=== PATIENT | female | born 1990 | race Caucasian/White ===

== ENCOUNTER 2019-01-16 08:10 | Inpatient (IN) ==
--- OUTSIDE RECORDS SUMMARY | 2019-01-16 09:05 | External Medical Summary | Continuity of Care Document ---
:1990 Author Name Mariah Baker Address Unavailable Unavailable , Care Team Providers Name Role Phone Pamela Israel M.D. Unavailable [email or web address] [place] PCP, NO Unavailable Unavailable Unavailable Unavailable Unavailable Problems Hematuria (599.70) (R31.9) Allergic rhinitis (477.9) (J30.9) Allergies and Adverse Reactions No Known Drug Allergies (Allergy) Medications Fexofenadine HCl - 60 MG Oral Tablet; Take 1 tablet tw ice daily Olivia Israel Start: 24-Sep-2009 Quantity: 60 Refills: 2 Procedures History of Ear Pressure Equalization Tube, Insertion Status: Completed Immunizations Polio On: 1990 0:00 HIB On: 1990 0:00 DTP On: 1990 0:00 Polio On: 1990 0:00 HIB On: 1990 0:00 DTP On: 1990 0:00 HIB On: 01-Jan-1991 0:00 DTP On: 01-Jan-1991 0:00 Polio On: 05-Nov-1991 0:00 HIB On: 05-Nov-1991 0:00 DTP On: 05-Nov-1991 0:00 MMR On: 05-Nov-1991 0:00 Hepatitis B On: 03-May-1994 0:00 Hepatitis B On: 28-Jun-1994 0:00 Hepatitis B On: 06-Nov-1994 0:00 Polio On: 07-Aug-1995 0:00 DTP On: 07-Aug-1995 0:00 MMR On: 27-Jun-1996 0:00 Varicella On: 26-Dec-2000 0:00 Tetanus-Diphtheria Toxoids Td 2-2 LF/0.5ML Intramuscul ar Suspension On: 26-Dec-2001 0:00 Influenza On: 17-Mar-2003 0:00 Menactra Intramuscular Injectable On: 05-Jul-2006 0:00 HPV (Gardasil) On: 05-Jul-2006 0:00 HPV (Gardasil) On: 17-Oct-2006 0:00 HPV (Gardasil) On: 01-Feb-2007 0:00 Varicella On: 27-May-2007 0:00 Tdap (Adacel) On: 15-May-2008 0:00 PPD On: 17-Nov-2011 0:00 Influenza On: 01-Dec-2011 0:00 Family History Sister Family history of Renal Failure Status: Active Unknown Family Member Family history of Breast Cancer (V16.3) Status: Active Comments: Family History Family history of Prostate Cancer (V16.42) Status: Active Comments: Family History aunt Family history of Diabetes Mellitus (V18.0) Status: Active Social History - Smoking Status Unknown if ever smoked Plan of Treatment Planned Observations Planned Goals not documented Results No Known Results Results not documented
[2019-01-16] MEDS ORDERED: OXYTOCIN 30 UNITS/500 ML BAG IV PRN (09:09)
[2019-01-16] MEDS ORDERED: DINOPROSTONE 10 MG INSERT PV ONE (09:09)
[2019-01-16] MEDS ORDERED: PATIENT'S ALLERGY INFO NEEDS ENTERED SCH (09:30)
[2019-01-16 09:43] LABS: Hematocrit (blood only) 33.9 % (37-47); Hemoglobin 11.5 g/dL (12.0-16.0); Mean Corpuscular Hemoglobin 27.8 pg (25-34); Mean Corpuscular Volume 82.1 fL (80-100); Mean Platelet Volume 9.6 fL (7.4-10.4); Platelet Count 314 K/uL (130-400); RDW Coefficient of Variation 13.5 % (11.5-14.5); RDW Standard Deviation 40.9 fL (36.4-46.3); Red Blood Count 4.13 M/uL (4.2-5.4); White Blood Count 13.65 K/uL (4.8-10.8)
[2019-01-16 09:58] LABS: Mean Corpuscular Hgb Conc 33.9 g/dL (32-36)
--- NOTE | 2019-01-16 10:26 | History & Physical Report ---
Date of Service January 16, 2019 Assessment & Plan (1) Elective induction of labor planned: 28 yo at 39.4 wks , IOL t term for Class III obesity VSS Afebrile no medical problems Suspected macrosomia FHR reassuring Understands limitation of US and risks of shoulder dystocia and desires to try for See HPI (2) Macrosomia affecting management of mother in third trimester: History of Present Illness Chief Complaint: Induction Primary Care Provider: NO PCP Patient is a 28 yo at 39.4 wks w ho si here for scheduled IOL at term for o besity No complaints No ctxs/ LOF/VB +FM's Her has been uncomplicated except 1) Class III Obesity 2) Rh negative 3) Elevated Glucola 138, passes 3 hout OGTT 4) Suspected macrosomia EFW was 3825 on 01/06, over 90th %ile Todays bed side US showed 4280 gr, BPD, AC are above 41 wks Both parents have large built body habitus Discussed risks of macrosomia, shoulder dystocia in details Discussed limitation of US, 10-15% rate of more or less with EFW Discussed neck/ nerve injury. 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[employer] LOCAL History No h/o STD's, no chlamydia/ gonorrhea/ genital herpes Review of Systems All systems reviewed & are unremarkable except as noted in HPI & below Physical Exam Constitutional: WD/WN, vitals as above well developed and well nourished Comfortably talking Gastrointestinal (Abdomen): abd: soft, NT, gravid Bed side US: vertex, placenta anterior, EFW 4280 gr Genitourinary: VE: cervix is very high, posterior,soft, 1/ 30%/ -4 Results & Data Vital Signs (Past 12 Hours) Vital Signs Temp Pulse Resp BP 01/16/19 09:10 36.5 C 20 01/16/19 09:06 97 H 129/83 Monitoring External Monitor Reactive Tocodynamometer No ctxs
[2019-01-16] MEDS ORDERED: BUTORPHANOL TARTRATE 1 MG/ML VIAL IV PRN (22:30)
--- NOTE | 2019-01-16 22:33 | Obstetrical Progress Note ---
Date of Service January 16, 2019 Subjective Patient is reevalauated She has been feeling ctxs, every 1-2 min Pain is 6-7/10 Does not need pain meds for now No LOF/VB +FM VSS Afebrile FHR categ I [place]: ctxs q 1-3 min VE: cervidil is removed, cervix 1-2 cm/ 30% but softer, -3, ballotable head Abundant curdy d/c, suggesting jose Plan to monitor, let her shower/ eat and continue with cervical ripenin with PO Cytotec when ctxs will space out Understands all Results & Data Vital Signs (Past 12 Hours) Vital Signs Temp Pulse Resp BP 01/16/19 19:48 76 127/74 01/16/19 16:54 20 01/16/19 15:15 90 134/86 01/16/19 15:13 36.6 C 18 01/16/19 12:18 36.6 C 88 20 124/72
[2019-01-16] MEDS ORDERED: FLUCONAZOLE 50 MG TAB PO ONE (23:00)
[2019-01-17] MEDS: LACTATED RINGER'S 1,000 ML IV PRN ×5 (06:35→22:25)
[2019-01-17] MEDS ORDERED: fentaNYL 2MCG/ML ROPIV 1.25MG/ML 100 ML BAG EPI ONE (08:36)
[2019-01-17] MEDS ORDERED: ePHEDrine sulfate 50 MG/ML AMP ONE (08:38)
[2019-01-17] MEDS ORDERED: fentaNYL citrate 100 MCG/2 ML VIAL ONE (08:38)
[2019-01-17] MEDS ORDERED: BUPIVACAINE 0.25% 30 ML VIAL ONE (08:39)
[2019-01-17] MEDS ORDERED: NALOXONE HCL 1 MG in SODIUM CHLORIDE 0.9% 1000ML 1,000 ML IV PRN (09:25)
[2019-01-17] MEDS ORDERED: NALOXONE HCL 0.4 MG/1 ML VIAL/CARP IV PRN (09:25)
[2019-01-17] MEDS ORDERED: DiphenhydrAMINE HCL 50 MG/ML VIAL IV PRN (09:25)
[2019-01-17] MEDS ORDERED: ePHEDrine sulfate 50 MG/ML AMP IV PRN (09:25)
[2019-01-17] MEDS ORDERED: NALBUPHINE HCL INJ 10 MG/ML AMP IV PRN (09:25)
--- NOTE | 2019-01-17 09:27 | Anesthesiology Consultation ---
Date of Service January 17, 2019 Assessment & Plan (1) Encounter for pre-operative examination: Chart Review Chart Review: Patient NOT seen in Pre Admission Testing and Acceptable Risk for Labor Epidural Consults Requested none ASA ASA2 Proposed Anesthesia Anesthesia Type: Labor Epidural Risk / Benefits Reviewed With: PT / POA / Parent / Guardian, Accepts Plan and Informed Consent Obtained History Height/Weight Height: 5 ft 6 in Weight: 121.109 kg Allergies Allergy/AdvReac Type Severity Reaction Status Date / Time pollen extracts Allergy Congested Verified 01/16/19 11:56 Medications Home Medications Medication Instructions Recorded Confirmed Last Taken levocetirizine [Xyzal] 5 mg PO DAILY 01/16/19 01/16/19 01/16/19 06:30 vit no.[id number] 1 tab PO DAILY 01/16/19 01/16/19 01/16/19 06:30 [ Vitamin] Active Medications Generic Name Dose Route Start Last Admin Trade Name Freq PRN Reason Stop Dose Admin Butorphanol Tartrate 1 mg 01/16/19 22:30 01/17/19 06:38 Stadol IV 02/15/19 22:29 1 mg Q2HWA PRN Administration Pain Lactated Ringer's 1,000 mls @ 150 mls/hr 01/16/19 09:20 01/17/19 09:16 Lr IV 01/18/19 09:19 500 mls/hr .[id number] PRN Administration L&D Protocol Protocol NPO Date Last Intake of Fluids: 01/17/19 Time Last Intake of Fluids: 09:00 Date Last Intake of Solids: 01/16/19 Time Last Intake of Solids: 21:00 Past Medical History Medical History Vitamin D deficiency Exercise / Class Metabolic Activity II 4-5 Yardwork/Stairs/Walk up hill Past Anesthesia History No Hx of Anesthesia Complications and No Family Hx of Anesthesia Complications History of PONV No Hx of PONV and No Hx of Motion Sickness Social History Smoking Status: Never smoker Do You Dip or Chew Tobacco: No Hx Alcohol Use: No Hx Substance Use: No substance use type: does not use Physical Exam Vital Signs Last Vital Signs Temp 36.6 C 01/17/19 08:57 Pulse 95 H 01/17/19 09:24 Resp 20 01/17/19 08:29 BP 145/83 H 01/17/19 09:22 Pulse Ox 98 01/17/19 09:24 Constitutional + obese ENMT Mouth: no dentition abnormality Thyromental Distance: > or= 3.5 Finger Breadths Mallampati Class: II Neck normal visual inspection Respiratory normal respiratory effort Auscultation: lungs clear to auscultation bilaterally Cardiovascular Rate/Rhythm: regular rate and regular rhythm Psychiatric Orientation: alert Testing Laboratory Results 01/16/19 09:22 Blood Type A Negative 01/16/19 09:22 Antibody Screen NEGATIVE 01/16/19 09:22
[2019-01-17] MEDS ORDERED: OXYTOCIN 30 UNITS/500 ML BAG IV PRN (13:57)
--- NOTE | 2019-01-17 14:17 | Labor Progress Brief Note ---
Date of Service January 17, 2019 Pt doing well Epidural analgesia in place FHR: CAt1 Ctx 1-5min, Minimal intensity Pitocin discussed with pt. agrees to pit. trial VE 3-4/50/-3 Results & Data Vital Signs (Past 12 Hours) Vital Signs Temp Pulse Resp BP Pulse Ox 01/17/19 14:14 123 H 94 01/17/19 14:09 105 H 95 01/17/19 14:04 95 H 98 01/17/19 14:02 106 H 109/59 L 01/17/19 13:59 109 H 100 01/17/19 13:54 105 H 100 01/17/19 13:49 104 H 98 01/17/19 13:47 100 H 118/64 01/17/19 13:44 103 H 98 01/17/19 13:39 100 H 98 01/17/19 13:34 104 H 99 01/17/19 13:32 115 H 115/74 01/17/19 13:29 108 H 100 01/17/19 13:24 108 H 99 01/17/19 13:19 107 H 100 01/17/19 13:17 106 H 111/65 01/17/19 13:14 115 H 93 01/17/19 13:09 127 H 18 100 01/17/19 13:04 103 H 100 01/17/19 13:02 100 H 117/61 01/17/19 13:00 36.5 C 18 01/17/19 12:59 92 H 100 01/17/19 12:54 102 H 100 01/17/19 12:49 111 H 99 01/17/19 12:47 96 H 123/65 01/17/19 12:44 94 H 100 01/17/19 12:39 96 H 99 01/17/19 12:36 98 H 82 L 01/17/19 12:34 98 H 100 01/17/19 12:33 90 121/72 01/17/19 12:30 100 H 88 L 01/17/19 12:29 103 H 100 01/17/19 12:24 101 H 99 01/17/19 12:19 101 H 100 01/17/19 12:17 96 H 114/64 01/17/19 12:14 98 H 100 01/17/19 12:09 91 H 99 01/17/19 12:04 109 H 100 01/17/19 12:03 97 H 129/61 01/17/19 12:00 18 01/17/19 11:59 91 H 100 01/17/19 11:54 90 100 01/17/19 11:49 89 100 01/17/19 11:47 88 100/55 L 01/17/19 11:44 92 H 100 01/17/19 11:40 92 H 90 01/17/19 11:39 97 H 95 01/17/19 11:34 90 100 01/17/19 11:32 89 95/51 L 01/17/19 11:29 96 H 100 01/17/19 11:24 93 H 99 01/17/19 11:19 96 H 100 01/17/19 11:17 93 H 93/53 L 01/17/19 11:14 96 H 100 01/17/19 11:09 97 H 99 01/17/19 11:04 101 H 100 01/17/19 11:03 101 H 110/64 01/17/19 11:00 36.6 C 18 01/17/19 10:59 119 H 100 01/17/19 10:54 116 H 99 01/17/19 10:52 120 H 92 01/17/19 10:49 98 H 97 01/17/19 10:47 103 H 139/85 01/17/19 10:44 98 H 100 01/17/19 10:39 94 H 99 01/17/19 10:34 96 H 98 01/17/19 10:32 100 H 141/85 H 01/17/19 10:29 96 H 99 01/17/19 10:24 98 H 99 01/17/19 10:19 93 H 99 01/17/19 10:17 101 H 146/92 H 01/17/19 10:14 95 H 97 01/17/19 10:09 97 H 98 01/17/19 10:04 94 H 98 01/17/19 10:02 99 H 138/82 01/17/19 09:59 92 H 99 01/17/19 09:54 90 98 01/17/19 09:52 105 H 94 01/17/19 09:49 92 H 100 01/17/19 09:47 90 141/82 H 01/17/19 09:44 97 H 99 01/17/19 09:39 92 H 99 01/17/19 09:34 98 H 98 01/17/19 09:33 101 H 92 01/17/19 09:31 97 H 136/74 01/17/19 09:29 99 H 98 01/17/19 09:28 96 H 141/76 H 01/17/19 09:25 94 H 140/78 01/17/19 09:24 95 H 98 01/17/19 09:23 18 01/17/19 09:22 91 H 145/83 H 01/17/19 09:19 86 149/85 H 97 01/17/19 09:17 113 H 142/93 H 01/17/19 09:14 96 H 99 01/17/19 09:09 96 H 100 01/17/19 09:07 99 H 18 139/95 88 L 01/17/19 09:04 92 H 97 01/17/19 09:00 20 01/17/19 08:59 97 H 98 01/17/19 08:57 36.6 C 01/17/19 08:54 87 98 01/17/19 08:30 20 01/17/19 08:29 20 01/17/19 07:30 18 01/17/19 07:08 36.7 C 91 H 20 131/70 01/17/19 05:59 36.7 C 01/17/19 04:08 91 H 137/65 01/17/19 03:03 36.6 C 93 H 18 120/70
[2019-01-17] MEDS: fentaNYL 2MCG/ML ROPIV 1.25MG/ML 100 ML BAG EPI PRN ×2 (18:41→23:28)
--- NOTE | 2019-01-17 22:14 | Labor Progress Brief Note ---
Date of Service January 17, 2019 Pt doing well last exam by nurse; 8cm Pit 20 mu Results & Data Vital Signs (Past 12 Hours) Vital Signs Temp Pulse Resp BP Pulse Ox 01/17/19 22:09 108 H 98 01/17/19 22:08 111 H 83 L 01/17/19 22:04 98 H 99 01/17/19 22:02 94 H 127/60 01/17/19 21:59 100 H 100 01/17/19 21:54 101 H 98 01/17/19 21:49 98 H 99 01/17/19 21:47 103 H 127/60 01/17/19 21:44 120 H 94 01/17/19 21:39 105 H 97 01/17/19 21:34 105 H 99 01/17/19 21:33 106 H 132/63 01/17/19 21:29 107 H 99 01/17/19 21:24 108 H 100 01/17/19 21:19 103 H 100 01/17/19 21:17 97 H 129/68 01/17/19 21:14 106 H 100 01/17/19 21:09 106 H 100 01/17/19 21:04 106 H 100 01/17/19 21:03 108 H 127/67 01/17/19 21:00 36.9 C 01/17/19 20:59 107 H 100 01/17/19 20:54 119 H 100 01/17/19 20:49 111 H 100 01/17/19 20:47 113 H 130/70 01/17/19 20:44 126 H 100 01/17/19 20:39 112 H 100 01/17/19 20:34 101 H 100 01/17/19 20:32 102 H 131/68 01/17/19 20:29 99 H 100 01/17/19 20:24 99 H 99 01/17/19 20:19 107 H 100 01/17/19 20:17 100 H 131/67 01/17/19 20:14 105 H 97 01/17/19 20:09 93 H 100 01/17/19 20:04 95 H 100 01/17/19 20:02 96 H 117/65 01/17/19 19:59 104 H 97 01/17/19 19:54 91 H 97 01/17/19 19:49 89 98 01/17/19 19:47 95 H 116/72 01/17/19 19:44 92 H 98 01/17/19 19:39 96 H 99 01/17/19 19:34 96 H 95 01/17/19 19:32 95 H 122/60 01/17/19 19:29 95 H 95 01/17/19 19:24 94 H 98 01/17/19 19:19 92 H 98 01/17/19 19:17 93 H 122/60 01/17/19 19:14 102 H 98 01/17/19 19:09 105 H 92 01/17/19 19:04 98 H 97 01/17/19 19:02 36.8 C 96 H 20 124/60 01/17/19 18:59 104 H 96 01/17/19 18:54 98 H 98 01/17/19 18:49 103 H 99 01/17/19 18:48 96 H 119/57 L 01/17/19 18:44 99 H 100 01/17/19 18:39 102 H 99 01/17/19 18:34 120 H 83 L 01/17/19 18:32 101 H 123/63 01/17/19 18:29 96 H 100 01/17/19 18:28 36.8 C 106 H 20 83 L 01/17/19 18:24 99 H 100 01/17/19 18:19 91 H 100 01/17/19 18:18 94 H 121/67 01/17/19 18:14 96 H 99 01/17/19 18:09 95 H 100 01/17/19 18:04 91 H 99 01/17/19 18:02 92 H 115/58 L 01/17/19 17:59 94 H 93 01/17/19 17:54 97 H 100 01/17/19 17:49 101 H 100 01/17/19 17:47 98 H 124/69 01/17/19 17:44 97 H 100 01/17/19 17:39 96 H 99 01/17/19 17:34 97 H 99 01/17/19 17:32 96 H 128/64 01/17/19 17:29 101 H 100 01/17/19 17:24 96 H 99 01/17/19 17:19 88 98 01/17/19 17:17 91 H 100/69 01/17/19 17:14 95 H 100 01/17/19 17:09 104 H 99 01/17/19 17:04 102 H 95 01/17/19 17:02 99 H 117/69 01/17/19 16:59 100 H 99 01/17/19 16:54 102 H 100 01/17/19 16:52 36.7 C 18 01/17/19 16:49 101 H 99 01/17/19 16:47 96 H 126/73 01/17/19 16:44 106 H 97 01/17/19 16:39 98 H 98 01/17/19 16:34 96 H 97 01/17/19 16:32 96 H 121/63 01/17/19 16:29 99 H 98 01/17/19 16:24 105 H 97 01/17/19 16:19 105 H 98 01/17/19 16:17 98 H 125/62 01/17/19 16:14 94 H 96 01/17/19 16:09 102 H 97 01/17/19 16:04 99 H 96 01/17/19 16:02 94 H 122/64 01/17/19 15:59 100 H 98 01/17/19 15:54 100 H 97 01/17/19 15:49 103 H 97 01/17/19 15:47 100 H 130/71 01/17/19 15:46 36.6 C 18 01/17/19 15:44 100 H 98 01/17/19 15:39 103 H 98 01/17/19 15:34 103 H 96 01/17/19 15:32 96 H 112/56 L 01/17/19 15:29 96 H 96 01/17/19 15:24 97 H 98 01/17/19 15:19 105 H 98 01/17/19 15:17 94 H 122/71 01/17/19 15:14 101 H 97 01/17/19 15:09 95 H 98 01/17/19 15:04 105 H 98 01/17/19 15:02 95 H 125/76 01/17/19 14:59 96 H 97 01/17/19 14:54 93 H 98 01/17/19 14:49 95 H 97 01/17/19 14:47 96 H 129/80 01/17/19 14:44 94 H 99 01/17/19 14:39 96 H 99 01/17/19 14:34 97 H 99 01/17/19 14:32 96 H 118/71 01/17/19 14:29 102 H 98 01/17/19 14:24 99 H 99 01/17/19 14:22 36.5 C 18 01/17/19 14:19 101 H 99 01/17/19 14:17 110 H 112/69 01/17/19 14:14 123 H 94 01/17/19 14:09 105 H 95 01/17/19 14:04 95 H 98 01/17/19 14:02 106 H 109/59 L 01/17/19 13:59 109 H 100 01/17/19 13:54 105 H 100 01/17/19 13:49 104 H 98 01/17/19 13:47 100 H 118/64 01/17/19 13:44 103 H 98 01/17/19 13:39 100 H 98 01/17/19 13:34 104 H 99 01/17/19 13:32 115 H 115/74 01/17/19 13:29 108 H 100 01/17/19 13:24 108 H 99 01/17/19 13:19 107 H 100 01/17/19 13:17 106 H 111/65 01/17/19 13:14 115 H 93 01/17/19 13:09 127 H 18 100 01/17/19 13:04 103 H 100 01/17/19 13:02 100 H 117/61 01/17/19 13:00 36.5 C 18 01/17/19 12:59 92 H 100 01/17/19 12:54 102 H 100 01/17/19 12:49 111 H 99 01/17/19 12:47 96 H 123/65 01/17/19 12:44 94 H 100 01/17/19 12:39 96 H 99 01/17/19 12:36 98 H 82 L 01/17/19 12:34 98 H 100 01/17/19 12:33 90 121/72 01/17/19 12:30 100 H 88 L 01/17/19 12:29 103 H 100 01/17/19 12:24 101 H 99 01/17/19 12:19 101 H 100 01/17/19 12:17 96 H 114/64 01/17/19 12:14 98 H 100 01/17/19 12:09 91 H 99 01/17/19 12:04 109 H 100 01/17/19 12:03 97 H 129/61 01/17/19 12:00 18 01/17/19 11:59 91 H 100 01/17/19 11:54 90 100 01/17/19 11:49 89 100 01/17/19 11:47 88 100/55 L 01/17/19 11:44 92 H 100 01/17/19 11:40 92 H 90 01/17/19 11:39 97 H 95 01/17/19 11:34 90 100 01/17/19 11:32 89 95/51 L 01/17/19 11:29 96 H 100 01/17/19 11:24 93 H 99 01/17/19 11:19 96 H 100 01/17/19 11:17 93 H 93/53 L 01/17/19 11:14 96 H 100 01/17/19 11:09 97 H 99 01/17/19 11:04 101 H 100 01/17/19 11:03 101 H 110/64 01/17/19 11:00 36.6 C 18 01/17/19 10:59 119 H 100 01/17/19 10:54 116 H 99 01/17/19 10:52 120 H 92 01/17/19 10:49 98 H 97 01/17/19 10:47 103 H 139/85 01/17/19 10:44 98 H 100 01/17/19 10:39 94 H 99 01/17/19 10:34 96 H 98 01/17/19 10:32 100 H 141/85 H 01/17/19 10:29 96 H 99 01/17/19 10:24 98 H 99 01/17/19 10:19 93 H 99 01/17/19 10:17 101 H 146/92 H 01/17/19 10:14 95 H 97
[2019-01-18] MEDS ORDERED: METHYLERGONOVINE MALEATE 0.2 MG/ML AMP ONE (01:01)
[2019-01-18] MEDS ORDERED: miSOPROStoL 200 MCG TAB ONE (01:03)
[2019-01-18] MEDS ORDERED: OXYCODONE/ACETAMINOPHEN 5mg/325mg TAB PO PRN (02:20)
[2019-01-18] MEDS ORDERED: BENZOCAINE 20% AER SPR 82.5 GM CAN EXT PRN (02:20)
[2019-01-18] MEDS ORDERED: METHYLERGONOVINE MALEATE 0.2 MG/ML AMP IM ONE (02:20)
[2019-01-18] MEDS ORDERED: HYDROCORTISONE ACETATE 25 MG SUPP PR PRN (02:20)
[2019-01-18] MEDS ORDERED: SUPERCREAM 0.870% 15 GM JAR EXT PRN (02:20)
[2019-01-18] MEDS ORDERED: DIPHTHERIA/TETANUS/PERTUSSIS 0.5 ML SYR/VIAL IM ONE (02:20)
[2019-01-18] MEDS ORDERED: OXYTOCIN 30 UNITS/500 ML BAG IV PRN (02:20)
[2019-01-18] MEDS ORDERED: ACETAMINOPHEN 325 MG TAB PO PRN (02:20)
[2019-01-18] MEDS ORDERED: bisacodyL 10 MG SUPP PR PRN (02:20)
[2019-01-18] MEDS ORDERED: ACETAMINOPHEN W/CODEINE #3 1 TAB PO PRN (02:20)
[2019-01-18] MEDS ORDERED: miSOPROStoL 200 MCG TAB PR ONE (02:20)
[2019-01-18] MEDS: IBUPROFEN 600 MG TAB PO PRN ×4 (02:48→21:46)
[2019-01-18] MEDS: miSOPROStoL 50 MCG TAB PO SCH ×4 (03:51→17:59)
--- NOTE | 2019-01-18 08:24 | Anesthesia Procedure Note ---
Date of Service January 18, 2019 Anesthesia Post Epidural Note Vital Signs Vital Signs: Temp Pulse Resp BP Pulse Ox 36.6 C 96 H 18 100/67 96 01/18/19 03:45 01/18/19 03:45 01/18/19 03:45 01/18/19 03:45 01/18/19 00:51 Pain Intensity Bilateral Episiotomy/Laceration: Pain Intensity: 3 Notes Mental Status: alert / awake / arousable and participated in evaluation Nausea / Vomiting: adequately controlled Pain: adequately controlled Airway Patency, RR, SpO2: stable & adequate BP & HR: stable & adequate Hydration State: stable & adequate Neuraxial Anesthesia: was administered and sensory block is resolving Anesthetic Complications: no major complications apparent Epidural: Removed without complications and With tip intact
[2019-01-18] MEDS: DOCUSATE SODIUM 100 MG CAP PO SCH ×2 (08:41→21:46)
[2019-01-18] MEDS: PRENATAL VITAMIN 1 TAB PO SCH (08:41)
[2019-01-18] MEDS: FERROUS SULFATE 325 MG TAB PO SCH (08:42)
[2019-01-19 06:20] LABS: Hematocrit (blood only) 26.8 % (37-47); Hemoglobin 8.6 g/dL (12.0-16.0); Mean Corpuscular Hemoglobin 26.9 pg (25-34); Mean Corpuscular Hgb Conc 32.1 g/dL (32-36); Mean Corpuscular Volume 83.8 fL (80-100); Mean Platelet Volume 9.7 fL (7.4-10.4); Platelet Count 285 K/uL (130-400); RDW Coefficient of Variation 13.8 % (11.5-14.5); RDW Standard Deviation 42.1 fL (36.4-46.3); White Blood Count 14.27 K/uL (4.8-10.8)
[2019-01-19] MEDS: IBUPROFEN 600 MG TAB PO PRN (06:39)
[2019-01-19] MEDS: DOCUSATE SODIUM 100 MG CAP PO SCH (08:30)
[2019-01-19] MEDS: FERROUS SULFATE 325 MG TAB PO SCH (08:30)
[2019-01-19] MEDS: PRENATAL VITAMIN 1 TAB PO SCH (08:31)
--- NOTE | 2019-01-19 10:26 | Obstetrical Progress Note ---
Date of Service January 19, 2019 Subjective Patient is seen and examined. She feels well, no complaints. Likes to be discharged Ambulating without dizziness Voiding without difficulty Tolerating regular diet with out N&V Bleeding is minimal No fever/ chills/ CP/ SOB/ N&V/ Leg pain Breast feeding without problems Vital Signs Temp Pulse Resp BP Pulse Ox 01/19/19 07:40 36.5 C 85 18 113/74 98 01/18/19 23:10 36.6 C 99 H 18 99/66 L Vital Signs Temp Pulse Pulse Resp BP BP Pulse Ox 01/19/19 07:40 36.5 C 85 18 113/74 98 01/18/19 23:10 36.6 C 99 H 18 99/66 L 01/18/19 19:40 36.4 C L 80 18 124/79 01/18/19 16:32 36.6 C 92 H 16 137/91 99 01/18/19 15:30 36.6 C 94 H 20 105/71 94 01/18/19 12:24 36.6 C 103 H 18 134/90 97 Intake and Output 01/18/19 01/19/19 01/19/19 22:59 06:59 14:59 Intake Total / Balance Intake: Intake (Blood Product) Amt / Rho D Immune Globulin Unit [id number] Lab Results 01/16/19 01/16/19 01/18/19 Range/Units 09:22 09:22 15:00 WBC 13.65 H (4.8-10.8) K/uL RBC 4.13 L (4.2-5.4) M/uL Hgb 11.5 L (12.0-16.0) g/dL Hct 33.9 L (37-47) % MCV 82.1 (80-100) fL MCH 27.8 (25-34) pg MCHC 33.9 (32-36) g/dL RDW Std Deviation 40.9 (36.4-46.3) fL RDW Coeff of Barrie 13.5 (11.5-14.5) % Plt Count 314 (130-400) K/uL MPV 9.6 (7.4-10.4) fL Blood Type A Negative A Negative Antibody Screen NEGATIVE Cancelled Screen Negative (Negative) 01/19/19 Range/Units 05:59 WBC 14.27 H (4.8-10.8) K/uL RBC 3.20 L (4.2-5.4) M/uL Hgb 8.6 L (12.0-16.0) g/dL Hct 26.8 L (37-47) % MCV 83.8 (80-100) fL MCH 26.9 (25-34) pg MCHC 32.1 (32-36) g/dL RDW Std Deviation 42.1 (36.4-46.3) fL RDW Coeff of Barrie 13.8 (11.5-14.5) % Plt Count 285 (130-400) K/uL MPV 9.7 (7.4-10.4) fL Blood Type Antibody Screen Screen (Negative) PE: General: Alert, orientedx3, NAD Abd: soft, NT, fundus firm, below Umbilicus Perineum intact, Lochia rubra minimal Ext; NT, no edema AP: 28 yo s/p , ppd# 1 VSS Afebrile doing well Continue routine care Discussed when to call All questions were answered D/C home , f/u in office Results & Data Vital Signs (Past 12 Hours) Vital Signs Temp Pulse Resp BP Pulse Ox 01/19/19 07:40 36.5 C 85 18 113/74 98 01/18/19 23:10 36.6 C 99 H 18 99/66 L
[2019-01-19] MEDS ORDERED: bisacodyL 5 MG TABEC PO SCH (20:00)
--- NOTE | 2019-01-20 07:46 | Delivery Summary ---
DATE OF OPERATION: 01/18/2019 The patient delivered a live infant male in the left occiput anterior presentation. There was nuchal cord which was easily reduced. Infant was delivered. Cord was clamped and cut. The patient wanted cord blood collection, so that was performed. Placenta spontaneously delivered. Inspection of the placenta shows a 3-vessel cord. Placenta otherwise appeared grossly normal. Inspection of the perineum shows a second-degree midline laceration which was repaired in layers with 2-0 and 3-0 Vicryl. Rectal exam post repair showed good sphincter tone, no sutures are palpated in the rectum. Estimated blood loss is 500 mL. Infant's weight and Apgars is in the pediatric record. Baby and mother are doing well in recovery. All instruments were removed from the vagina including sponges, needles, and retractors. I attest to the content of the Intraoperative Record and any orders documented therein. Any exception s are noted below.
== END 2019-01-19 13:20 | disposition home or self-care (01) | DRG 807 ==
LOC: 4S1 09:02 → 4S2 01-18 04:17

== ENCOUNTER 2020-10-04 08:26 | Inpatient (IN) ==
[2020-10-04] MEDS ORDERED: OXYTOCIN 30 UNITS/500 ML BAG IV PRN (09:36)
[2020-10-04 10:19] LABS: Hematocrit (blood only) 34.4 % (37-47); Hemoglobin 10.9 g/dL (12.0-16.0); Mean Corpuscular Hgb Conc 31.7 g/dL (32-36); Mean Corpuscular Volume 82.1 fL (80-100); Mean Platelet Volume 9.9 fL (7.4-10.4); Platelet Count 376 K/uL (130-400); RDW Coefficient of Variation 14.1 % (11.5-14.5); RDW Standard Deviation 42.2 fL (36.4-46.3); Red Blood Count 4.19 M/uL (4.2-5.4); White Blood Count 13.82 K/uL (4.8-10.8)
--- NOTE | 2020-10-04 12:07 | Ultrasound Report ---
US OB limited HISTORY: 30 years-old Female hx of macrosmia follow-up study in a patient with decreased weigh t COMPARISON: None TECHNIQUE: Multiple real-time sonographic images of the pelvic structures were obtained transabdomina lly assessing grayscale appearance, color and spectral flow with M-mode analysis FINDINGS: There is a single living intrauterine gestation in cephalic positioning, heart rate measured at 146 bpm. BPD measures 9.9 cm correlating with estimated gestational age of 40 weeks and 4 days. Head circumference is 35.4 cm correlating with estimated gestational age of 41 weeks 3 days. Abdominal ci rcumference measures 35 cm, 39 weeks and 2 days. Femur length is 7.9 cm, 40 weeks and 2 days. Estimat ed weight is 3913 g +/- 587 g. Questioned nuchal cord. IMPRESSION: 1. Single living intrauterine gestation in cephalic positioning with measurements as above. 2. Nuchal cord. ACT 112: Negative or not required by law. The above report was generated using voice recognition software. It may contain grammatical, syntax o r spelling errors. Electronically signed by: Edis Mcginnis M.D. 10/04/2020 12:06 PM
--- NOTE | 2020-10-04 12:40 | Progress Note ---
Date of Service October 04, 2020 Assessment & Plan Admission and Anticipated Discharge Date Admission Date: October 04, 2020 Subjective Met pt and spouse Reviewed Induction Pt delivered 9.1Lb baby last time This time she was offered induction at 39 weeks and declined EFW today is ordered and reviewed will proceed with induction Results & Data ([facility]) Vital Signs (Past 12 Hours) Vital Signs Temp Pulse Resp BP 10/04/20 11:18 36.5 C 81 18 103/66 10/04/20 08:49 36.7 C 87 18 136/85 10/04/20 08:45 36.5 C 20
[2020-10-04] MEDS: miSOPROStoL 50 MCG TAB PO SCH ×2 (13:51→19:26)
--- NOTE | 2020-10-04 14:19 | Progress Note ---
Date of Service October 04, 2020 Assessment & Plan Admission and Anticipated Discharge Date Admission Date: October 04, 2020 Subjective FHR CAT1 Ctx; Minimal VE /post Cytotec # ordered Results & Data ([facility]) Vital Signs (Past 12 Hours) Vital Signs Temp Pulse Resp BP 10/04/20 11:18 36.5 C 81 18 103/66 10/04/20 08:49 36.7 C 87 18 136/85 10/04/20 08:45 36.5 C 20
[2020-10-04] MEDS ORDERED: PENICILLIN G POTASSIUM 6 MU in DEXTROSE 5% 250 ML IV STA (16:22)
[2020-10-04] MEDS ORDERED: DINOPROSTONE 10 MG INSERT PV ONE (23:42)
--- NOTE | 2020-10-05 00:11 | Progress Note ---
Date of Service October 05, 2020 Assessment & Plan Admission and Anticipated Discharge Date Admission Date: October 04, 2020 Subjective Doing well FHR; CAT! Ctx; 2-5min, mild intensity VE 04/24/ Cervidil placed in vagina Results & Data ([facility]) Vital Signs (Past 12 Hours) Vital Signs Temp Pulse Resp BP 10/04/20 19:01 36.8 C 84 18 126/86 10/04/20 14:56 36.4 C L 82 20 123/81
[2020-10-05] MEDS: BUTORPHANOL TARTRATE 1 MG/ML VIAL IV PRN ×2 (03:25→06:25)
[2020-10-05] MEDS: LACTATED RINGER'S 1,000 ML IV PRN ×3 (07:44→14:45)
[2020-10-05] MEDS ORDERED: ePHEDrine sulfate 50 MG/ML AMP ONE (07:53)
[2020-10-05] MEDS ORDERED: BUPIVACAINE 0.25% 30 ML VIAL ONE (07:53)
[2020-10-05] MEDS ORDERED: SODIUM CHLORIDE 0.9% INJ 10 ML VIAL ONE (07:53)
[2020-10-05] MEDS ORDERED: fentaNYL citrate 100 MCG/2 ML VIAL ONE (07:54)
[2020-10-05] MEDS ORDERED: fentaNYL 2MCG/ML ROPIVACAINE 1.25MG/ML 100 ML BAG EPI ONE (07:54)
--- NOTE | 2020-10-05 09:02 | Anesthesiology Consultation ---
Date of Service October 05, 2020 Assessment & Plan (1) Encounter for pre-operative examination: Chart Review Chart Review: Acceptable Risk for Labor Epidural Consults Requested none ASA ASA2 Proposed Anesthesia Anesthesia Type: Labor Epidural Risk / Benefits Reviewed With: PT / POA / Parent / Guardian, Accepts Plan and Informed Consent Obtained History Height/Weight Height: 5 ft 6 in Weight: 121.563 kg Allergies Allergy/AdvReac Type Severity Reaction Status Date / Time pollen extracts Allergy Congested Verified 01/16/19 11:56 Medications Home Medications Medication Instructions Recorded Confirmed Last Taken Vitamin 1 tab PO DAILY 01/16/19 10/04/20 10/03/20 levocetirizine [Xyzal] 5 mg PO DAILY 01/16/19 10/04/20 10/04/20 valacyclovir [Valtrex] 500 mg PO DAILY 10/04/20 10/04/20 10/04/20 Active Medications Generic Name Dose Route Start Last Admin Trade Name Freq PRN Reason Stop Dose Admin Butorphanol Tartrate 1 mg 10/05/20 00:23 10/05/20 06:25 Butorphanol Tartrate 1 Mg/Ml Vial IV 11/04/20 00:22 1 mg Q2HWA PRN Administration Pain Lactated Ringer's 1,000 mls @ 125 mls/hr 10/04/20 09:36 10/05/20 09:01 Lr IV 10/06/20 09:35 999 mls/hr .Q8H PRN Administration L&D Protocol Protocol Misoprostol 50 mcg 10/04/20 14:00 10/04/20 19:26 Misoprostol 50 Mcg Tab PO 11/03/20 13:59 50 mcg Q4H SHANNAN Administration Past Medical History Medical History Genital herpes Started taking Valtrex at 36 weeks. One outbreak at 19 years old. Thrombophlebitis Left leg. 2 weeks . Lovenox used during that time. Vitamin D deficiency Exercise / Class Metabolic Activity II 4-5 Yardwork/Stairs/Walk up hill Past Family History Family History Other No known health problems Past Surgical History Surgical History H/O adenoidectomy Past Anesthesia History No Hx of Anesthesia Complications and No Family Hx of Anesthesia Complications History of PONV No Hx of PONV and No Hx of Motion Sickness Social History Smoking Status: Never smoker Hx Alcohol Use: No Hx Substance Use: No substance use type: does not use Physical Exam Vital Signs Last Vital Signs Temp 97.9 F 10/05/20 07:15 Pulse 89 10/05/20 08:57 Resp 20 10/05/20 07:15 BP 121/70 10/05/20 07:06 Pulse Ox 94 10/05/20 08:57 ENMT Mouth: no dentition abnormality Thyromental Distance: > or= 3.5 Finger Breadths Mallampati Class: II Neck normal visual inspection Respiratory normal respiratory effort Auscultation: lungs clear to auscultation bilaterally Cardiovascular Rate/Rhythm: regular rate and regular rhythm Testing Laboratory Results 10/04/20 09:58
[2020-10-05] MEDS ORDERED: fentaNYL 2MCG/ML ROPIVACAINE 1.25MG/ML 100 ML BAG EPI PRN (09:29)
[2020-10-05] MEDS ORDERED: ONDANSETRON INJ 2 MG/ML 2 ML VIAL IV PRN (09:29)
[2020-10-05] MEDS ORDERED: NALBUPHINE HCL INJ 10 MG/ML AMP IV PRN (09:29)
[2020-10-05] MEDS ORDERED: ePHEDrine sulfate 50 MG/ML AMP IV PRN (09:29)
[2020-10-05] MEDS ORDERED: NALOXONE HCL 0.4 MG/1 ML VIAL/CARP IV PRN (09:29)
[2020-10-05] MEDS ORDERED: diphenhydrAMINE 50 MG/ML VIAL IV PRN (09:29)
[2020-10-05] MEDS ORDERED: NALOXONE HCL 1 MG in SODIUM CHLORIDE 0.9% 1000ML 1,000 ML IV PRN (09:29)
[2020-10-05] MEDS: PENICILLIN G POTASSIUM 3 MU in DEXTROSE 5% 100 ML IV PRN ×2 (12:19→16:21)
--- NOTE | 2020-10-05 14:44 | Labor Progress Brief Note ---
Date of Service October 05, 2020 Assessment & Plan Admission and Anticipated Discharge Date Admission Date: October 04, 2020 Physical Exam Genitourinary: Manual OB Exam: + cervical dilation 7 cm, + cervical effacement 100%, + station high and + amniotic fluid clear OB Exam Monitor Tracing: + external FHT monitor used, + external uterine monitor used, + category I and + normal FHT variability AROM with Amni-hook clear fluid Results & Data ([facility]) Vital Signs (Past 12 Hours) Vital Signs Temp Pulse Resp BP Pulse Ox 10/05/20 14:42 109 H 10/05/20 14:37 89 96 10/05/20 14:32 99 H 96 10/05/20 14:30 85 106/57 L 10/05/20 14:27 87 95 10/05/20 14:22 89 99 10/05/20 14:17 98 H 98 10/05/20 14:15 95 H 119/67 10/05/20 14:12 88 97 10/05/20 14:07 92 H 97 10/05/20 14:02 84 98 10/05/20 14:00 88 122/60 10/05/20 13:57 85 98 10/05/20 13:52 93 H 99 10/05/20 13:47 98 H 98 10/05/20 13:46 88 119/61 10/05/20 13:42 101 H 99 10/05/20 13:37 103 H 100 10/05/20 13:32 114 H 95 10/05/20 13:30 91 H 20 118/66 10/05/20 13:27 90 98 10/05/20 13:22 92 H 97 10/05/20 13:17 93 H 98 10/05/20 13:15 86 123/76 10/05/20 13:12 87 97 10/05/20 13:07 88 97 10/05/20 13:02 85 97 10/05/20 13:00 85 18 123/76 10/05/20 12:57 85 97 10/05/20 12:52 85 96 10/05/20 12:47 86 96 10/05/20 12:45 87 118/75 10/05/20 12:42 84 96 10/05/20 12:37 83 94 10/05/20 12:32 86 97 10/05/20 12:30 83 18 115/72 10/05/20 12:27 83 96 10/05/20 12:22 85 96 10/05/20 12:17 95 H 96 10/05/20 12:15 90 123/75 10/05/20 12:12 94 H 96 10/05/20 12:07 88 96 10/05/20 12:02 81 98 10/05/20 12:00 78 20 124/72 10/05/20 11:57 87 97 10/05/20 11:52 82 96 10/05/20 11:47 94 H 97 10/05/20 11:45 98 H 118/66 10/05/20 11:42 97 H 98 10/05/20 11:37 103 H 97 10/05/20 11:32 97 H 96 10/05/20 11:30 36.6 C 93 H 20 113/62 10/05/20 11:27 91 H 95 10/05/20 11:22 96 H 96 10/05/20 11:17 91 H 95 10/05/20 11:15 90 114/64 10/05/20 11:12 84 94 10/05/20 11:07 87 94 10/05/20 11:02 89 94 10/05/20 11:01 86 120/67 10/05/20 11:00 18 10/05/20 10:57 91 H 95 10/05/20 10:52 90 94 10/05/20 10:47 88 117/62 95 10/05/20 10:45 18 10/05/20 10:42 101 H 93 10/05/20 10:37 89 94 10/05/20 10:32 91 H 94 10/05/20 10:30 95 H 117/68 10/05/20 10:27 81 97 10/05/20 10:22 86 94 10/05/20 10:17 88 94 10/05/20 10:15 18 10/05/20 10:14 84 116/62 10/05/20 10:12 83 94 10/05/20 10:09 90 116/63 10/05/20 10:07 81 96 10/05/20 10:04 86 114/63 10/05/20 10:02 91 H 95 10/05/20 09:59 84 119/64 10/05/20 09:57 80 96 10/05/20 09:54 82 125/64 10/05/20 09:52 80 97 10/05/20 09:49 90 132/66 10/05/20 09:47 94 H 96 10/05/20 09:45 18 10/05/20 09:44 94 H 128/64 10/05/20 09:42 93 H 131/64 96 10/05/20 09:40 96 H 124/61 10/05/20 09:38 98 H 130/63 10/05/20 09:37 99 H 97 10/05/20 09:36 108 H 137/68 10/05/20 09:34 103 H 139/71 10/05/20 09:32 115 H 131/58 L 97 10/05/20 09:30 107 H 130/59 L 10/05/20 09:28 103 H 139/67 10/05/20 09:27 99 H 97 10/05/20 09:26 92 H 144/94 H 10/05/20 09:23 93 H 143/87 H 10/05/20 09:22 100 H 154/100 H 95 10/05/20 09:17 91 H 93 10/05/20 09:13 94 H 94 10/05/20 09:12 94 H 95 10/05/20 09:07 94 H 95 10/05/20 09:05 88 152/86 H 10/05/20 09:02 90 98 10/05/20 09:00 22 10/05/20 08:57 89 94 10/05/20 08:52 94 H 96 10/05/20 08:51 103 H 91 10/05/20 08:47 81 97 10/05/20 08:44 94 H 94 10/05/20 08:42 93 H 98 10/05/20 08:37 92 H 95 10/05/20 08:32 95 H 96 10/05/20 08:31 97 H 94 10/05/20 08:27 99 H 98 10/05/20 08:22 94 H 96 10/05/20 08:21 105 H 92 10/05/20 08:17 95 H 95 10/05/20 08:12 86 95 10/05/20 08:10 90 93 10/05/20 08:07 96 10/05/20 08:02 95 H 97 10/05/20 07:15 36.6 C 20 10/05/20 07:06 82 121/70 10/05/20 07:01 77 126/69 10/05/20 06:30 82 116/70 10/05/20 04:15 85 125/78 10/05/20 04:00 75 122/71 10/05/20 03:45 86 121/71 10/05/20 03:28 95 H 130/80
[2020-10-05] MEDS ORDERED: OXYTOCIN 30 UNITS/500 ML BAG IV PRN ×2 (14:54→19:34)
[2020-10-05] MEDS ORDERED: ACETAMINOPHEN 325 MG TAB PO PRN (19:34)
[2020-10-05] MEDS ORDERED: SUPERCREAM 0.870% 15 GM JAR EXT PRN (19:34)
[2020-10-05] MEDS ORDERED: DIPHTHERIA/TETANUS/PERTUSSIS 0.5 ML SYR/VIAL IM ONE (19:34)
[2020-10-05] MEDS ORDERED: BENZOCAINE 20% AER SPR 82.5 GM CAN EXT PRN (19:34)
[2020-10-05] MEDS ORDERED: bisacodyL 10 MG SUPP PR PRN (19:34)
[2020-10-05] MEDS ORDERED: HYDROCORTISONE ACETATE 25 MG SUPP PR PRN (19:34)
--- NOTE | 2020-10-05 19:34 | Delivery Summary ---
Vaginal Delivery Summary Date of Service October 05, 2020 Vaginal Delivery Summary Delivery Note live male over intact perineum HEATH with delayed cord clamping and Apgars 8/10 weight pending. Cord blood obtained. True knot in cord. Placenta delivered spontaneously and intact. No tears. EBL 100 ml. Final sponge and instrument count are correct. Mom and baby stable.
--- NOTE | 2020-10-05 19:42 | Anesthesia Procedure Note ---
Date of Service October 05, 2020 Anesthesia Post Epidural Note Vital Signs Vital Signs: Temp Pulse Resp BP Pulse Ox 98.1 F 115 H 18 117/71 100 10/05/20 17:30 10/05/20 19:41 10/05/20 18:30 10/05/20 19:41 10/05/20 19:37 Pain Intensity Abdomen: Pain Intensity: 2 Notes Mental Status: alert / awake / arousable and participated in evaluation Nausea / Vomiting: adequately controlled Pain: adequately controlled Airway Patency, RR, SpO2: stable & adequate BP & HR: stable & adequate Hydration State: stable & adequate Neuraxial Anesthesia: was administered and sensory block is resolving Anesthetic Complications: no major complications apparent and Pt Satisfied with anesthetic care Epidural: Removed without complications and With tip intact
[2020-10-05] MEDS ORDERED: XYZAL~ORDER AWAITING ACTION SCH (19:45)
[2020-10-05] MEDS ORDERED: DOCUSATE SODIUM 100 MG CAP PO SCH (21:00)
[2020-10-06] MEDS: IBUPROFEN 600 MG TAB PO PRN ×3 (02:40→14:15)
[2020-10-06 06:33] LABS: Hematocrit (blood only) 30.7 % (37-47); Hemoglobin 9.8 g/dL (12.0-16.0); Mean Corpuscular Hemoglobin 25.5 pg (25-34); Mean Corpuscular Hgb Conc 31.9 g/dL (32-36); Mean Corpuscular Volume 79.7 fL (80-100); Mean Platelet Volume 9.4 fL (7.4-10.4); Platelet Count 366 K/uL (130-400); RDW Coefficient of Variation 14.2 % (11.5-14.5); RDW Standard Deviation 40.7 fL (36.4-46.3); Red Blood Count 3.85 M/uL (4.2-5.4); White Blood Count 16.36 K/uL (4.8-10.8)
[2020-10-06] MEDS ORDERED: FERROUS SULFATE 325 MG TAB PO SCH (08:00)
[2020-10-06] MEDS ORDERED: PRENATAL VITAMIN 1 TAB PO SCH ×2 (08:00→09:00)
--- NOTE | 2020-10-06 10:42 | Obstetrical Progress Note ---
Date of Service October 06, 2020 Subjective Voiding: no voiding problems Passing Gas:: Yes Diet Tolerance:: regular diet Lochia:: Small Feeding Type:: breast feeding Current Pain Level(1-10): 0 ambulating well Physical Exam Neurologic patellar DTR's 2+ bilat, sensation intact Genitourinary OB Exam Abdomen: + fundal height (below U) Lymphatic abdomen soft and non-tender Results & Data ([facility]) Vital Signs (Past 12 Hours) Vital Signs Temp Pulse Resp BP Pulse Ox 10/06/20 07:45 36.5 C 99 H 18 129/89 96 10/06/20 03:00 36.5 C 96 H 18 128/83 10/05/20 23:55 36.6 C 96 H 18 125/85 Laboratory Results 10/04/20 10/04/20 10/04/20 08:40 08:40 09:58 WBC 13.82 H RBC 4.19 L Hgb 10.9 L Hct 34.4 L MCV 82.1 MCH 26.0 MCHC 31.7 L RDW Std Deviation 42.2 RDW Coeff of Barrie 14.1 Plt Count 376 MPV 9.9 COVID-19 Eval [facility] SARS-CoV-2, RNA, NAAT NEGATIVE 10/06/20 06:04 WBC 16.36 H RBC 3.85 L Hgb 9.8 L Hct 30.7 L MCV 79.7 L MCH 25.5 MCHC 31.9 L RDW Std Deviation 40.7 RDW Coeff of Barrie 14.2 Plt Count 366 MPV 9.4 COVID-19 Eval Order SARS-CoV-2, RNA, NAAT
[2020-10-06] MEDS ORDERED: bisacodyL 5 MG TABEC PO SCH (20:00)
== END 2020-10-06 20:18 | disposition home or self-care (01) | DRG 807 ==
LOC: 4S1 08:26 → 4S2 10-05 22:18